=== PATIENT | male | born 1950 | race Caucasian/White ===

== ENCOUNTER → 2018-02-25 07:54 | Outpatient (CLI) | payer MEDICARE, MEDICAID | END | disposition home or self-care (01) | LOC: D.MRI 07:54 | DX: M25.552 Pain in left hip (principal) ==

== ENCOUNTER 2018-12-03 05:25 | Day surgery (SDC) | payer MEDICARE, MEDICAID ==
[2018-12-01 10:42] LABS: MCH 32.7 pg (26.0-34.0); MCHC 34.8 g/dL (31.0-37.0); MCV 93.9 fL (80.0-100.0); MEAN PLATELET VOLUME 11.7 fL (7.4-10.4); RBC 4.9 10x6/uL (4.20-6.10); RDW 12.9 % (11.5-14.5); WBC 10.3 10x3/uL (4.8-10.8)
[~2018-12-03] VITALS: Ht 172.7 cm; Wt 68.0 kg
[~2018-12-03 05:25] MED LIST: HYDROCODON-ACE1 EA10; OMEPRAZOLE20 M1 PO
[2018-12-03 06:11] VITALS: BP 134/74; Ht 172.7 cm; Wt 68.0 kg
--- NOTE | 2018-12-03 08:54 | NUR ---
PATIENT POSITIONED PRONE ON BACK FRAME ALL AREAS CHECKED PADDED AND SECURED, GENITALS CHECKED, NO IMPINGEMENTS, TWORLEY.
--- NOTE | 2018-12-03 12:07 | NUR ---
1155 VOIDED WITHOUT DIFFICULTY. IV D/C'D WITH CANNULA INTACT DISCHARGE INSTRUCTIONS GIVEN VSS
--- NOTE | 2018-12-05 13:05 | OP ---
PATIENT NAME: GENESIS BAXTER MEDICAL RECORD: [id number] :52 LOCATION:[facility] ADMISSION DATE: SURGEON: ALFREDO VILLALOBOS MD DATE OF OPERATION: 12/03/2018 PREOPERATIVE DIAGNOSES: Lumbar spinal stenosis with disc protrusion at L2-L3 in the left. PRIMARY CARE DOCTOR: Rocio Camarena MD PROCEDURE: Lumbar laminectomy, medial facetectomy, and foraminotomy L2-L3 left with discectomy L2-L3 left. SURGEON: Alfredo Villalobos MD DESCRIPTION AND TECHNIQUE: After induction of general endotracheal anesthesia, the patient was rolled prone on the David frame. Lumbar spine was prepped and draped in usual sterile fashion. Fluoroscopic x-ray and spinal needle localized the L2-L3 interspace on the left side. Level was confirmed with fluoroscopic x-ray. After infiltration of 1% lidocaine with 1:100,000 epinephrine, a stab incision was created on the left at L2-L3. Series of dilators were used to advance a METRx retractor at the L2-L3 interspace on the left side that was confirmed with fluoroscopic x-ray. A microscope and Midas Chip drill were used to perform laminotomy, medial facetectomy, and foraminotomy L2-L3 on the left. Hypertrophied ligamentum flavum was removed with Cloward rongeurs. Following this, the L3 nerve root was partially decompressed. There was a disc protrusion ventral to the nerve root. This was removed with the pituitary rongeurs in a piecemeal fashion. An incision was made in the annulus of the disc space and additional material and posterior one-third of the disc space was removed with pituitary rongeurs. The axilla of the nerve root was explored and found to be free of any nerve root disc herniation. Meticulous hemostasis was maintained throughout the wound. The wound was irrigated with copious amounts of Ancef irrigant solution. The fascia was closed with 3-0 Vicryl suture, the subdermal layer was closed with 3-0 Vicryl suture. The skin was closed with michelle. A sterile dressing was applied to the wound. The patient was awakened in good condition and taken to recovery. All counts were reported as correct. Estimated blood loss was minimal. TRANSINT:[id number] Voice Confirmation ID: [id number] DOCUMENT ID: [id number] ALFREDO VILLALOBOS MD at 1305 CC: [id number] DICTATION DATE: 12/04/18 1437 FRONT DESK HOST: 12/04/18 1730 [facility] 12/03/18 [place] [id number] [facility] [address]
== END 2018-12-03 12:05 | disposition home or self-care (01) ==
LOC: D.OPS 05:25 → D.PAN 07:30 → D.OPS 12:05
PROVIDERS: Anesthesiology; ATTEND Neurological Surgery
DX: M48.061 Spinal stenosis, lumbar region without neurogenic claudication (principal); M51.16 Intervertebral disc disorders with radiculopathy, lumbar region; Z01.812 Encounter for preprocedural laboratory examination

== ENCOUNTER 2020-05-16 13:21 | Observation (INO) | payer MEDICARE ==
[~2020-05-16] VITALS: Ht 172.7 cm; Wt 62.3 kg
--- NOTE | ~2020-05-16 | HEMODYNAMI ---
PATIENT:GENESIS BAXTER MEDICAL RECORD: [id number] : 52 LOCATION:[facility] D.2114 ADMISSION DATE: 05/16/20 Generatedon:05/18/20207:22 Patient name: GENESIS BAXTER Patient #: [id number] SSN: : 1950 Date of study: 05/18/2020 Page: Of Hemodynamic Procedure Report Patient Data Patient Demographics Procedure consent was obtained First Name: GENESIS Gender: Male Last Name: VEE : 1950 [facility] Initial: PRATIMA Age: 70 year(s) Patient #: [id number] Race: Unknown Additional ID: [id number] Contact details [address]: [address] [place] [address] State: [place] City: [place] Zip code: [address] Past Medical History Allergies Allergen Reaction Date Comments Reported Other allergy 05/18/2020 DULOXETINE Admission Admission Data Admission Date: 05/16/2020 Admission Time: 18:59 Room #: D.4 Lab Results Lab Result Date: 05/18/2020 Lab Result Time: 0:00 Biochemistry Name Units Result Min Max BUN mg/dl 10 --(-*--)-- 7 18 Creatinine mg/dl 0.7 --(*---)-- 0.6 1.3 eGFR ml/min 90 --(*---)-- 90 120 NONAFRICAN CBC Name Units Result Min Max Hematocrit % 44.4 --(*---)-- 42 54 Hemoglobin g/dl 15.1 --(-*--)-- 13.5 17.5 Procedure Procedure Types Cath Procedure Diagnostic Procedure C [facility] w/Coronaries Sedation Charges Moderate Sedation 10-24 minutes Procedure Description Procedure Date Procedure Date: 05/18/2020 Procedure Start Time: 7:08 Procedure End Time: 7:19 Procedure Staff Name Function Jackson Chiu MD Performing Physician Charis Cárdenas RT Monitor Emely Verdin RT Scrub Linda Nava RN Nurse Procedure Data Cath Procedure Fluoroscopy Diagnostic fluoroscopy Total fluoroscopy Time: 1.2 time: 1.2 min min Diagnostic fluoroscopy Total fluoroscopy dose: 311 dose: 311 mGy mGy Contrast Material Contrast Material Type Amount (ml) Isovue 300 52 Entry Location Entry Primary Successful Side Size Upsize Upsize Entry Closure Succes sful Closure Location (Fr) 1 (Fr) 2 (Fr) Remarks Device Remarks Femoral Right 5 Fr Exoseal artery Estimated blood loss: 5 ml Diagnostic catheters Device Type Used For End Catheter Placement MULTIPACK JL 4.0 5Fr Procedure catheter MULTIPACK 3DRC 5Fr Procedure catheter MULTIPACK Pigtail 5 Fr Procedure catheter Procedure Complications No complications Procedure Medications Medication Administration Route Dosage Oxygen etCO2 Nasal cannula 2 l/min Lidocaine 2% added to field 20 Heparin Flush Bag added to field 2 bags (1000units/500ml NS) 0.9% NaCl I.V. 100 ml/hr Versed I.V. 1 mg Fentanyl I.V. 50 mcg Versed I.V. 1 mg Fentanyl I.V. 50 mcg Versed I.V. 1 mg Hemodynamics Rest HGB: 15.1 (g/dl) Heart Rate: 80 (bpm) Pressure Samples Time Site Value (mmHg) Purpose Heart Use Rate(bpm) 7:14 LV 153/-3,13 Snapshot 83 7:15 AO 148/67(100) Pullback 76 7:15 LV 149/-1,18 Pullback 76 Gradients Valve Time Site 1 Site 2 Mean SEP/DFP Peak To Heart Use (mmHg) (sec/min) Peak Rate (mmHg) (bpm) Aortic 7:15 LV AO 12 14 1 76 149/-1,18 148/67(100) Calculations Valve P-P Mean Valve Index Valve Source Name Gradient Area Flow (cm2) Aortic 1 12 1 12 Snapshots Pre Cath Intra NCS Post Cath Vital Signs Time Heart Resp SPO2 etCO2 NIBP (mmHg) Rhythm Pain Sedation Rate (ipm) (%) (mmHg) Status Level (bpm) 6:56:19 66 15 98 36 141/84(112) NSR 0 (11) 10(A) , No pain 7:00:33 70 12 96 0 126/80(103) NSR 0 (11) 10(A) , No pain 7:04:43 66 14 93 42.7 140/77(114) NSR 0 (11) 10(A) , No pain 7:08:57 64 16 96 42 142/74(117) NSR 0 (11) 9(A) , No pain 7:13:11 74 15 93 48 156/84(122) NSR 0 (11) 9(A) , No pain 7:17:31 69 15 93 33.7 139/74(111) NSR 0 (11) 10(A) , No pain Medications Time Medication Route Dose Verified Delivered Reason Notes Effe ctiveness by by 6:58:42 Oxygen etCO2 2 Jackson Buffie used for Nasal l/min Aram Nava RN procedure cannula 6:58:49 Lidocaine 2% added 20ml Jackson Jackson for local to vial Aram Chiu MD anesthetic field 6:58:55 Heparin Flush added 2 Jackson Jackson used for Bag to bags Aram Chiu MD procedure (1000units/500ml field NS) 6:59:03 0.9% NaCl I.V. 100 Jackson Buffie Per ml/hr Aram Nava RN physician 7:06:05 Versed I.V. 1 mg Jackson Buffie for Aram Nava RN sedation 7:06:12 Fentanyl I.V. 50 Jackson Buffie for mcg Aram Nava RN sedation 7:10:49 Versed I.V. 1 mg Jackson Buffie for Aram Nava RN sedation 7:10:53 Fentanyl I.V. 50 Jackson Buffie for mcg Aram Nava RN sedation 7:13:59 Versed I.V. 1 mg Jackson Buffie for Aram Nava RN sedation Procedure Log Time Note 6:35:39 Informed consent obtained and on chart 6:35:56 Procedure Status Urgent Heart Cath (IP). 6:35:56 Time tracking: Regular hours (M-F 7:00 - 5:00) 6:35:59 Plan of Care:Hemodynamics will remain stable., Cardiac rhythm will remain stable., Comfort level will be maintained., Respiratory function will remain adequate., Patient/ family verbilizes understanding of procedure., Procedure tolerated without complication., Recovers from procedure without complications.. 6:36:01 Emely Verdin RT(R) sent for patient. Start room use. 6:37:42 H&P Date Dictated: 05/16/2020 Within 30 days and on chart., H&P Addendum completed by physician on day of procedure. (MUST COMPLETE FOR ALL OUTPATIENTS). 6:55:15 Patient received from Med II to CCL 1 Alert and oriented. Tansferred to table in Supine position. 6:55:16 Warm blankets applied, and blacna hugger turned on for patient comfort. 6:55:16 Correct patient and procedure confirmed by team. 6:55:17 ECG and BP/O2 sat monitors applied to patient. 6:55:18 Vital chart was started 6:55:20 Baseline sample Acquired. 6:55:25 Rhythm: sinus rhythm 6:55:27 Full Disclosure recording started 6:55:27 Pre-procedure instructions explained to patient. 6:55:28 Pre-op teaching completed and patient verbalized understanding. 6:55:30 Family unavailable. 6:55:32 Patient NPO since Midnight. 6:55:52 Patient allergic to Other allergyDULOXETINE 6:55:54 Is the patient allergic to Iodine/contrast media? No. 6:55:56 Is patient on blood thinner?No 6:55:58 Patient diabetic? No. 6:56:00 Previous problem with sedation/anesthesia? No \ 6:56:02 Snore? Yes 6:56:03 Sleep apnea? No 6:56:04 Deviated septum? No 6:56:05 Opens mouth fully? Yes 6:56:08 Sticks out tongue? Yes 6:56:10 Airway obstruction? No ? 6:56:13 Dentures? No ? 6:56:15 Pre procedure: right dorsailis pedis pulse 2+ Normal; easily identifiable; not easily obliterated 6:56:28 NO RADIAL. WEAK PULSE 6:56:31 Patient pain scale 0/10 ?. 6:56:38 IV patent on arrival in right forearm with 0.9% NaCl at [facility]. 6:57:07 Lab Result : BUN 10 mg/dl 6:57:07 Lab Result : Creatinine 0.7 mg/dl 6:57:07 Lab Result : Hemoglobin 15.1 g/dl 6:57:07 Lab Result : eGFR NONAFRICAN 90 ml/min 6:57:07 Lab Result : Hematocrit 44.4 % 6:57:10 Lab results completed and on chart. 6:57:14 Right groin area was prepped with chlora-prep and draped in sterile fashion 6:57:16 Alarms reviewed by Tia Rosas 6:57:16 Sharps counted by scrub and verified by R.N. 6:58:42 Oxygen 2 l/min etCO2 Nasal cannula was administered by Linda Nava RN; used for procedure; Verbal order read back and verified. 6:58:49 Lidocaine 2% 20ml vial added to field was administered by Jackson Chiu MD; for local anesthetic; Verbal order read back and verified. 6:58:55 Heparin Flush Bag (1000units/500ml NS) 2 bags added to field was administered by Jackson Chiu MD; used for procedure; Verbal order read back and verified. 6:59:03 0.9% NaCl 100 ml/hr I.V. was administered by Linda Nava RN; Per physician; Verbal order read back and verified. 7:00:37 Use device set Femoral Dx 7:00:38 ACIST Syringe (75001) opened to sterile field. 7:00:38 Bag Decanter (2002S) opened to sterile field. 7:00:39 ACIST Hand Control (53740) opened to sterile field. 7:00:39 ACIST Manifold (14885) opened to sterile field. 7:00:40 Tegaderm 4 x 4 (1626W) opened to sterile field. 7:00:42 Medline Cath Pack ([id number]) opened to sterile field. 7:00:42 DIAGNOSTIC Multipack 5Fr catheter set (AS8512) opened to sterile field. 7:00:43 SHEATH 5FR [place] (EDT098) opened to sterile field. 7:00:44 EMERALD Guide Wire (306-831) opened to sterile field. 7:05:10 --------ALL STOP TIME OUT------ 7:05:10 Final Timeout: patient, procedure, and site verified with staff and physician. All members of the team are in agreement. 7:05:11 Right groin site verified by team. 7:05:14 Fire Safety Assessment: A--An alcohol-based skin anteseptic being used preoperatively., C--Open oxygen or nitrous oxide is being used., D--An ESU, laser, or fiber-optic light is being used. 7:05:17 Physical assessment completed. ASA score P 2 - A patient with mild systemic disease as per Jackson Chiu MD. 7:05:19 1) 90+ Normal kidney functon but urine findings or structural abnormalities or genetic trait point to kidney disease. 7:05:21 Maximum allowable contrast dose (3.7 X eGFR X 0.75)250 ml. 7:05:23 Sedation plan: IV Moderate Sedation Medication:Versed, Fentanyl 7:06:05 Versed 1 mg I.V. was administered by Linda Nava RN; for sedation; Verbal order read back and verified. 7:06:12 Fentanyl 50 mcg I.V. was administered by Linda Nava RN; for sedation; Verbal order read back and verified. 7:08:04 Procedure started. 7:08:32 Local anesthetic to right femoral artery with Lidocaine 2% by Jackson Chiu MD.INITIAL ACCESS ONLY 7:08:50 Zero performed for pressure channel P1 7:09:53 A 5 Fr sheath was inserted into the Right Femoral artery 7:10:16 A MULTIPACK JL 4.0 5Fr catheter was advanced over the wire and used for Procedure. 7:10:49 Versed 1 mg I.V. was administered by Linda Nava RN; for sedation; Verbal order read back and verified. 7:10:53 Fentanyl 50 mcg I.V. was administered by Linda Nava RN; for sedation; Verbal order read back and verified. 7:11:50 LCA angiography performed. 7:11:54 Catheter exchanged over wire. 7:12:52 A MULTIPACK 3DRC 5Fr catheter was advanced over the wire and used for Procedure. 7:13:09 RCA angiography performed. 7:13:21 Catheter exchanged over wire. 7:13:24 ACCDominant side:Left 7:13:34 A MULTIPACK Pigtail 5 Fr catheter was advanced over the wire and used for Procedure. 7:13:59 Versed 1 mg I.V. was administered by Linda Nava RN; for sedation; Verbal order read back and verified. 7:14:06 LV gram done using CHA 7:14:11 Injector settings: Ml/sec: 10, Volume: 20, 7:14:49 LV hemodynamics recorded. 7:15:03 EF : 50 % 7:15:18 Catheter removed. 7:15:32 EXOSEAL 5Fr (EX500) opened to sterile field. 7:16:23 Sheath removed intact; hemostasis achieved with Exoseal to the Right Femoral artery. 7:16:57 Procedure ended.(Physican Out) 7:17:12 Fluoroscopy time 01.20 minutes. 7:17:17 Fluoroscopy dose: 311 mGy 7:17:17 Flurop Dose total: 311 7:17:23 Dose Area Product 57283 mGy/cm. 7:17:47 Contrast amount:Isovue 300 52ml. 7:17:51 Maximum allowable dose exceeded? No. 7:17:53 Sharps counted by scrub and verified by R.N. 7:17:56 Post-op/insertion site Right Femoral artery dressed using a 4 x 4 and Tegaderm. 7:18:13 Post-procedure physical assessment completed. ASA score P 2 - A patient with mild systemic disease as per Jackson Chiu MD. 7:18:18 Post procedure rhythm: sinus rhythm 7:18:21 Estimated blood loss: 5 ml 7:18:22 Post procedure instruction explained to patient.Patient verbalizes understanding. 7:18:23 Patient needs reinforcement of post procedure teaching. 7:18:44 Procedure type changed to Cath procedure, Diagnostic procedure, LHC, [facility] w/Coronaries, Sedation Charges, Moderate Sedation 10-24 minutes 7:19:01 Procedure and supply charges have been captured, reviewed, submitted and are correct. 7:19:03 Procedure Complication : No complications 7:19:05 Vital chart was stopped 7:19:07 [facility] Findings: mild to moderate CAD (<70%) 7:19:09 Operative report dictated upon procedure completion. 7:19:09 See physician's report for complete and final results. 7:19:11 Report given to Pre/Post Procedure Room. 7:19:33 Patient transfered to [facility] with Bed. 7:19:35 Procedure ended. 7:19:35 Full Disclosure recording stopped 7:19:38 End room use (Document Last) 7:21:14 End room use (Document Last) 7:21:44 End room use (Document Last) Device Usage Item Name Manufacture Quantity Catalog Hospital Part Current Minimal L ot# / Number Charge Number Stock Stock Serial# Code ACIST Acist 1 95290 793788 433663 668908 20 Syringe Boxee (20764) Systems Inc Bag Microtek 1 404699 50894 050571 5 Decanter Medical Inc. () ACIST Hand Acist 1 69100 882951 765680 607421 5 Control Medical (31458) Systems Inc ACIST Acist 1 95941 233989 226903 409763 5 Manifold Medical (98891) Systems Inc Tegaderm 4 3M 1 1626W 231247 662640 121684 5 x 4 (1626W) Medline Medline 1 [id number] 249898 68740 561359 5 Cath Pack ([id number]) DIAGNOSTIC Cardinal 1 [id number] 446085 47124 711095 30 Multipack Datalogix 5Fr catheter set (XJ1966) SHEATH 5FR Terumo 1 [id number] 162454 769528 618977 5 [place] (BEJ559) EMERALD Cardinal 1 463-559 416459 917445 978236 5 Guide Wire Datalogix (502-231) MULTIPACK Cardinal 1 884772 5 JL 4.0 5Fr Health catheter MULTIPACK Cardinal 1 558681 5 3DRC 5Fr Datalogix catheter MULTIPACK Cardinal 1 298716 5 Pigtail 5 Health Fr catheter EXOSEAL 5Fr Cardinal 1 EX500 087478 387691 601282 10 (EX500) Health Signature Audit [place] Stage Time Signature Unsigned Intra-Procedure 05/18/2020 Emely Verdin 7:21:14 AM RT(R) Intra-Procedure 05/18/2020 Linda Nava RN 7:21:44 AM Intra-Procedure 05/18/2020 Jackson Chiu MD 7:22:06 AM [facility] [address] [place] [address]
[2020-05-16 13:41] VITALS: Ht 172.7 cm; Wt 62.3 kg
[2020-05-16 14:49] LABS: BASOPHILS 0.4 % (0-2); EOSINOPHILS 2.7 % (0-7); HEMATOCRIT 43.5 % (42.0-54.0); HEMOGLOBIN 14.7 g/dL (13.5-17.5); IMMATURE GRANULOCYTES 0.1 % (0-5); LYMPHOCYTES 30.7 % (15-50); MCH 32.4 pg (26.0-34.0); MCHC 33.8 g/dL (31.0-37.0); MCV 95.8 fL (80.0-100.0); NEUTROPHILS 56.1 % (40-80); PLATELET COUNT 259 10x3/uL (130-400); RBC 4.54 10x6/uL (4.20-6.10); RDW 12.2 % (11.5-14.5); WBC 10.9 10x3/uL (4.8-10.8)
[2020-05-16 14:56] LABS: CALC OSMOLALITY 280 mosm/kg (275-300); CALCIUM 8.7 mg/dL (8.5-10.1); CARBON DIOXIDE 29.6 mmol/L (21.0-32.0); CHLORIDE - SERUM 104 mmol/L (98-107); CREATININE - SERUM 0.7 mg/dL (0.6-1.3); GLUCOSE 108 mg/dL (74-106); POTASSIUM - SERUM 3.7 mmol/L (3.5-5.1); SODIUM 141 mmol/L (136-145); UREA NITROGEN 11 mg/dL (7-18); eGFR NON AFRICAN AMERICAN > 90 mL/min (90-120)
[2020-05-16 15:00] VITALS: BP 156/88
[2020-05-16 15:11] LABS: ALBUMIN 3.4 g/dL (3.4-5.0); ALKALINE PHOSPHATASE 47 U/L (30-120); ALT (SGPT) 29 U/L (10-68); BILIRUBIN - TOTAL 0.25 mg/dL (0.2-1.3); CKMB 0.6 U/L (0.0-3.6); CREATINE KINASE 83 UL (21-232); MAGNESIUM - SERUM 1.3 mg/dL (1.8-2.4)
[2020-05-16 15:12] LABS: APTT 28.5 SECONDS (22.8-39.4); INR 0.96 (0.85-1.17); PROTIME 12.7 SECONDS (11.6-15.0)
[2020-05-16 15:15] LABS: TROPONIN-I < 0.017 ng/mL (0.000-0.060)
[2020-05-16 16:00] VITALS: BP 173/95
[2020-05-16 17:00] VITALS: BP 161/88
[2020-05-16 18:00] VITALS: BP 151/82
[2020-05-16 18:26] LABS: CKMB 0.8 U/L (0.0-3.6); CREATINE KINASE 80 UL (21-232); TROPONIN-I < 0.017 ng/mL (0.000-0.060)
--- NOTE | 2020-05-16 19:30 | NUR ---
PT IN BED, AAO X 3, RESP EVEN AND UNLABORED, NO DISTRESS NOTED, CL IN REACH, SR UP X 2, NO C/O CHEST PAIN AT THIS TIME.
[2020-05-16 20:00] VITALS: BP 136/84
[2020-05-16 23:56] LABS: CKMB 0.5 U/L (0.0-3.6); CREATINE KINASE 73 UL (21-232); TROPONIN-I < 0.017 ng/mL (0.000-0.060)
[2020-05-17 00:04] VITALS: BP 106/52
[2020-05-17 04:00] VITALS: BP 107/59
[2020-05-17 07:02] VITALS: BP 103/64
[2020-05-17 07:07] LABS: BASOPHILS 0.4 % (0-2); EOSINOPHILS 3.5 % (0-7); HEMATOCRIT 42.3 % (42.0-54.0); HEMOGLOBIN 14.3 g/dL (13.5-17.5); IMMATURE GRANULOCYTES 0.3 % (0-5); LYMPHOCYTES 31.4 % (15-50); MCH 32.4 pg (26.0-34.0); MCHC 33.8 g/dL (31.0-37.0); MCV 95.9 fL (80.0-100.0); MEAN PLATELET VOLUME 12.1 fL (7.4-10.4); MONOCYTES 11.1 % (2-11); NEUTROPHILS 53.3 % (40-80); PLATELET COUNT 241 10x3/uL (130-400); RBC 4.41 10x6/uL (4.20-6.10); RDW 12.3 % (11.5-14.5); WBC 10.6 10x3/uL (4.8-10.8)
[2020-05-17 07:29] LABS: APTT 27.4 SECONDS (22.8-39.4); INR 0.98 (0.85-1.17); PROTIME 12.9 SECONDS (11.6-15.0)
[2020-05-17 07:40] LABS: ALBUMIN 3.2 g/dL (3.4-5.0); ALKALINE PHOSPHATASE 42 U/L (30-120); ALT (SGPT) 26 U/L (10-68); BILIRUBIN - TOTAL 0.46 mg/dL (0.2-1.3); CALC OSMOLALITY 279 mosm/kg (275-300); CALCIUM 8.2 mg/dL (8.5-10.1); CARBON DIOXIDE 31.6 mmol/L (21.0-32.0); CHLORIDE - SERUM 104 mmol/L (98-107); CHOL - HDL RATIO 2.2 ratio (2.3-4.9); CHOLESTEROL, TOTAL 201 mg/dL (0-200); CKMB 0.7 U/L (0.0-3.6); CREATINE KINASE 65 UL (21-232); CREATININE - SERUM 0.8 mg/dL (0.6-1.3); GLUCOSE 84 mg/dL (74-106); HDL CHOLESTEROL 91 mg/dL (32-96); LDL CHOLESTEROL 97 mg/dL (0-100); LDL-HDL RATIO 1.1 ratio (1.5-3.5); MAGNESIUM - SERUM 1.3 mg/dL (1.8-2.4); POTASSIUM - SERUM 3.6 mmol/L (3.5-5.1); PRO BNP 128 pg/mL (0-125); PROTEIN - SERUM 6.6 g/dL (6.4-8.2); SODIUM 141 mmol/L (136-145); TRIGLYCERIDE 67 mg/dL (30-200); UREA NITROGEN 12 mg/dL (7-18); eGFR NON AFRICAN AMERICAN > 90 mL/min (90-120)
[2020-05-17 07:57] LABS: TROPONIN-I < 0.017 ng/mL (0.000-0.060)
--- NOTE | 2020-05-17 09:59 | NUR ---
PT INSTRUCTED TO STAY NPO FOR NOW DUE TO STRESS TEST ORDER. CUP GIVEN FOR URINE SAMPLE ALSO.
--- NOTE | 2020-05-17 11:49 | NUR ---
PT WITH HEADACHE HE THINKS IS FROM NITRO PATCH. REMOVED AND CLEANED SKIN, TYLENOL GIVEN.
[2020-05-17 12:41] LABS: BILIRUBIN NEGATIVE (NEGATIVE); KETONE MODERATE mg/dL (NEGATIVE); NITRITE NEGATIVE (NEGATIVE); UROBILINOGEN NORMAL mg/dL (< 2)
[2020-05-17 16:53] VITALS: BP 134/74
--- NOTE | 2020-05-17 19:30 | NUR ---
PT IN BED, AAO X 3, RESP EVEN AND UNLABORED, NO DISTRESS NOTED, CL IN REACH, SR UP X 2.
[2020-05-17 20:00] VITALS: BP 161/74
[2020-05-17 20:47] LABS: BASOPHILS 0.4 % (0-2); EOSINOPHILS 2.6 % (0-7); HEMATOCRIT 43.5 % (42.0-54.0); HEMOGLOBIN 14.8 g/dL (13.5-17.5); IMMATURE GRANULOCYTES 0.2 % (0-5); LYMPHOCYTES 34.6 % (15-50); MCH 32.9 pg (26.0-34.0); MCV 96.7 fL (80.0-100.0); MEAN PLATELET VOLUME 11.9 fL (7.4-10.4); NEUTROPHILS 51.2 % (40-80); PLATELET COUNT 224 10x3/uL (130-400); RDW 12.3 % (11.5-14.5); WBC 11.2 10x3/uL (4.8-10.8)
[2020-05-18] VITALS (7 sets, daily range): BP systolic 120–148; BP diastolic 64–90
[2020-05-18 05:22] LABS: BASOPHILS 0.4 % (0-2); EOSINOPHILS 4.4 % (0-7); HEMATOCRIT 44.4 % (42.0-54.0); HEMOGLOBIN 15.1 g/dL (13.5-17.5); IMMATURE GRANULOCYTES 0.2 % (0-5); MCH 32.5 pg (26.0-34.0); MCV 95.7 fL (80.0-100.0); PLATELET COUNT 253 10x3/uL (130-400); RBC 4.64 10x6/uL (4.20-6.10); RDW 12.2 % (11.5-14.5); WBC 10.3 10x3/uL (4.8-10.8)
[2020-05-18 05:40] LABS: ALBUMIN 3.3 g/dL (3.4-5.0); ALKALINE PHOSPHATASE 45 U/L (30-120); ALT (SGPT) 28 U/L (10-68); BILIRUBIN - TOTAL 0.34 mg/dL (0.2-1.3); CALC OSMOLALITY 278 mosm/kg (275-300); CALCIUM 8.4 mg/dL (8.5-10.1); CARBON DIOXIDE 31.3 mmol/L (21.0-32.0); CHLORIDE - SERUM 102 mmol/L (98-107); CHOL - HDL RATIO 2.3 ratio (2.3-4.9); CHOLESTEROL, TOTAL 207 mg/dL (0-200); CREATININE - SERUM 0.7 mg/dL (0.6-1.3); GLUCOSE 88 mg/dL (74-106); HDL CHOLESTEROL 92 mg/dL (32-96); LDL CHOLESTEROL 101 mg/dL (0-100); LDL-HDL RATIO 1.1 ratio (1.5-3.5); MAGNESIUM - SERUM 1.4 mg/dL (1.8-2.4); POTASSIUM - SERUM 3.3 mmol/L (3.5-5.1); SODIUM 141 mmol/L (136-145); TRIGLYCERIDE 70 mg/dL (30-200); UREA NITROGEN 10 mg/dL (7-18); eGFR NON AFRICAN AMERICAN > 90 mL/min (90-120)
--- NOTE | 2020-05-18 07:37 | NUR ---
PATIENT RETURNED FROM PROCEDURE. VITALS STABLE. WILL CONTINUE TO MONITOR.
--- NOTE | 2020-05-18 09:04 | NUR ---
ALERT AND ORIENTED. LUNGS CLEAR BILATERALLY. HEART SOUNDS S1 AND S2 HEARD IN ALL RAMOS. IV TO RFA PATENT WITHOUT REDNESS. SURGICAL SITE REMAINS C/D/I. VITALS REMAIN STABLE. AT BEDSIDE. BED LOW. CALL SOOD AND PERSONAL ITEMS IN REACH. WILL CONTINUE TO MONITOR.
--- NOTE | 2020-05-18 10:43 | NUR ---
DISCHARGE EDUCATION PROVIDED BOTH WRITTEN AND VERBAL. VERBALIZED UNDERSTANDING. DENIES FURTHER QUESTIONS. IV REMOVED FROM RFA WITH TIP INTACT. PATIENT DC HOME WITH ALL BELONGINGS.
--- NOTE | 2020-05-18 12:49 | MORECARE ---
CASE MANAGEMENT DISCHARGE SUMMARY PATIENT: GENESIS BAXTER UNIT: [id number] ADM DATE: 05/16/20 AGE: 70 : 51 SEX: M ROOM/BED: D.2114 AUTHOR: PETER COLE PHYSICIAN: REFERRING PHYSICIAN: ALFREDO BENJAMIN MD DATE OF SERVICE: 05/18/20 Discharge Plan Patient Name: GENESIS BAXTER [facility] [facility] 1950 Planned Disposition: Home Anticipated Discharge Date: 05/18/20 Discharge Date: 05/18/2020 Expected LOS: 2 Initial Reviewer: [email or web address] Initial Review Date: 05/16/2020 Generated: 05/18/20 1:48 pm Coverage Notice Reviewer: [email or web address] Ryan Serrano Notice Issued Date-Time: 05/17/2020 7:11 Notice Type: Medicare Outpatient Observation Notice Notice Delivered To: Patient Relationship to Patient: Self Extractor Operator Name: Delivery Method: HAND - Hand Delivered Carolyn Days: Prior Verbal Notification: Recipient Understood Notice: Yes Recipient Signature: Yes Med Rec Note Co-signed by Attending: Coverage Notice Comment: JIMENES explained, signed, given, copy placed in MR Patient Name: GENESIS BAXTER Page [phone] at 1249 All edits/amendments must be made on the electronic document DICTATION DATE: 05/18/208 DRAMATIC DIRECTOR: SABINE 05/18/20 1248 RPT#: [id number] DC DATE:05/18/20 STATUS: DIS IN [facility] [address] [place] [address] END OF REPORT
== END 2020-05-18 10:43 | disposition home or self-care (01) ==
LOC: D.ER 13:21 → D.M2 18:59 → OBSVTIME 18:59 → D.M2 18:59
PROVIDERS: Emergency Medicine; Family Medicine; Internal Medicine Cardiovascular Disease; ADMIT Emergency Medicine; ATTEND Emergency Medicine
DX: I20.0 Unstable angina (principal); F17.203 Nicotine dependence unspecified, with withdrawal; E83.42 Hypomagnesemia; K21.9 Gastro-esophageal reflux disease without esophagitis